=== PATIENT | female | born 1980 | race Caucasian/White ===

== ENCOUNTER 2021-02-19 10:15 | Emergency (ER) | payer BC ==
[2021-02-19] MEDS ORDERED: Acetaminophen/HYDROcodone 325-10 MG Tab PO ONE (10:27)
[2021-02-19] MEDS ORDERED: Ketorolac 30 MG/ML SDV IM ONE (10:29)
--- NOTE | 2021-02-19 13:22 | EDM.PDOC ---
ED HPI GENERAL MEDICAL PROBLEM - General Chief Complaint: Lower Extremity Injury/Pain Stated Complaint: left leg pain Time Seen by Provider: 02/19/21 10:19 Source of Information: Reports: Patient History Limitations: Reports: No Limitations - History of Present Illness INITIAL COMMENTS - FREE TEXT/NARRATIVE: Pt. presents to ER with complaints of pain in L ankle. [place] unequal ground, twisting her ankle. Denies any injury elsewhere. Denies any numbness/tingling in distal portion of the extremity. She states that she noted crepitus when the accident happened. Pt. denies any head or facial trauma. Injury is isolated to L lateral and posterior ankle. Onset: Today Location: Reports: Lower Extremity, Left Quality: Reports: Throbbing Severity: Moderate Left Ankle Pain Score (Numeric/FACES): 3 - Related Data Allergies Allergy/AdvReac Type Severity Reaction Status Date / Time No Known Allergies Allergy Verified 02/19/21 10:22 Home Meds: Home Meds Acetaminophen [Tylenol Extra Strength] 2 tab PO Q4HR PRN 02/19/21 [History] Escitalopram Oxalate [Lexapro] 5 mg PO DAILY 02/19/21 [History] Past Medical History HEENT History: Reports: Glaucoma, Other (See Below) Other HEENT History: tympanic surgery in past Other GROUNDMAN/LINEMAN History: hysterectomy Social & Family History - Tobacco Use Tobacco Use Status *Q: Current Every Day Tobacco User Years of Tobacco use: 20 Packs/Tins Daily: 0.5 - Caffeine Use Caffeine Use: Reports: Soda Other Caffeine Use: 2 per day - Recreational Drug Use Recreational Drug Use: No Review of Systems - Review of Systems Review Of Systems: See Below Constitutional: Reports: No Symptoms Eyes: Reports: No Symptoms Ears: Reports: No Symptoms Nose: Reports: No Symptoms Mouth/Throat: Reports: No Symptoms Respiratory: Reports: No Symptoms Cardiovascular: Reports: No Symptoms GI/Abdominal: Reports: No Symptoms Genitourinary: Reports: No Symptoms Musculoskeletal: Reports: No Symptoms Skin: Reports: No Symptoms Neurological: Reports: No Symptoms Psychiatric: Reports: No Symptoms ED EXAM, GENERAL - Physical Exam Exam: See Below Exam Limited By: No Limitations General Appearance: Alert, WD/WN, No Apparent Distress Extremities: Leg Pain (pain/swelling/ecchymosis to L ankle. No significant deformity noted. CMS intact. Pt. complains of increased discomfort with plantar and dorsiflexion and rotation of the foot/ankle. CMS intact.) Course - Vital Signs Last Recorded V/S: Last Vital Signs Temp 36.0 C L 02/19/21 10:19 Pulse 58 L 02/19/21 10:19 Resp 20 02/19/21 10:19 BP 104/57 L 02/19/21 10:19 Pulse Ox 100 02/19/21 10:19 - Orders/Labs/Meds Orders: Active Orders 24 hr Category Date Time Status Ankle Min 3V Lt [CR] Stat Exams 02/19/21 10:26 Taken Meds: Medications Discontinued Medications Generic Name Dose Route Start Last Admin Trade Name Norris PRN Reason Stop Dose Admin Hydrocodone Bitart/Acetaminophen 1 tab 02/19/21 10:27 02/19/21 10:32 Acetaminophen/Hydrocodone 325-10 Mg Tab PO 02/19/21 10:28 1 tab ONETIME ONE Administration Ketorolac Tromethamine 30 mg 02/19/21 10:29 02/19/21 10:38 Ketorolac 30 Mg/Ml Sdv IM 02/19/21 10:30 30 mg ONETIME ONE Administration - Radiology Interpretation Free Text/Narrative:: Fracture noted to distal portion of L fibula Departure - Departure Time of Disposition: 13:00 Disposition: Home, Self-Care 01 Clinical Impression: Fracture of distal end of left fibula - Discharge Information Instructions: Ankle Fracture, [id number] Referrals: PCP,None [Primary Care Provider] - Forms: ED Department Discharge Additional Instructions: [place] 10/325mg 1 every 4-6 hours as needed for pain Wear CAM boot. Use crutches. You can start to slowly bear weight as you are able. Follow-up with Joe on Monday as directed Sepsis Event Note (ED) - Evaluation Sepsis Screening Result: No Definite Risk - Focused Exam Vital Signs: Vital Signs Temp Pulse Resp BP Pulse Ox 02/19/21 10:19 36.0 C L 58 L 20 104/57 L 100 - My Orders Last 24 Hours: My Active Orders 02/19/21 10:26 Ankle Min 3V Lt [CR] Stat - Assessment/Plan Last 24 Hours: My Active Orders 02/19/21 10:26 Ankle Min 3V Lt [CR] Stat Plan: [place] 10/325mg 1 every 4-6 hours as needed for pain Wear CAM boot. Use crutches. You can start to slowly bear weight as you are able. Appointment was made for the patient next Monday with [facility] foot/ankle surgery.
== END 2021-02-19 12:24 | disposition home or self-care (01) ==
LOC: LL.ED 10:15
DX: S82.832A Other fracture of upper and lower end of left fibula, initial encounter for closed fracture (principal); Z72.0 Tobacco use; X50.1XXA Overexertion from prolonged static or awkward postures, initial encounter; Y93.01 Activity, walking, marching and hiking
CPT/HCPCS: 73610; 96372; 99283; A9270; J1885